=== PATIENT | female | born 1990 | race Caucasian/White ===

== ENCOUNTER 2023-11-09 13:50 | Outpatient (CLI) | payer OTHER, MEDICAID, SELFPAY ==
[2023-11-09 14:00] VITALS: BP 145/90; PULSE 101; TEMP 36.5; O2SAT 98
[2023-11-09 14:02] VITALS: PULSE 95; O2SAT 99
[2023-11-09 14:18] VITALS: BP 140/82; PULSE 81
[2023-11-09 14:31] LABS: ROM Internal Control Test YES-OK TO RESULT pt. (Internal QC); ROM Patient Test Negative (Negative)
[2023-11-09 15:12] VITALS: BP 131/85; PULSE 82
[2023-11-09 15:25] LABS: Group B Strep DNA By PCR Negative (Negative); Internal Control PASS; Probe Check PASS; Specimen Processing Control PASS
[2023-11-09 18:01] VITALS: BP 118/82; PULSE 82; TEMP 36.7
--- NOTE | 2023-11-10 11:09 | OB.TRI.NOTE ---
HPI - General HPI Narrative GRICEL PINZON, is a 33 F who presents Maternal Data Information Final XAVI: 11/02/23 Gestational age: 41 PFSH PFSH Home Medications vit no.95-ferrous fumarate 28 mg-folic acid 800 mcg tablet () 1 tab PO DAILY 11/09/23 [History Last Taken Unknown] Allergy/AdvReac Type Severity Reaction Status Date / Time latex Allergy Mild Swelling Verified 11/09/23 14:26 NST FHR Rate Baby A Baseline: 120 Variability:: Moderate Accelerations:: 15 x 15 Decelerations:: None NST Reactive:: Yes FHR Category:: Category I Uterine Activity:: irreg ctxs Assessment & Plan (1) 41 weeks gestation of : PLAN: 33-year-old multigravida female [place] presented for rule out spontaneous rupture membranes. That was negative. She was on her way home. Plans to deliver in [place]. heart tones were category 1, no evidence of rupture membranes or active labor. Patient was released home to follow-up at her home hospital as needed for signs or symptoms of labor or follow-up with her primary ob next week as scheduled
== END 2023-11-09 15:19 | disposition home or self-care (01) ==
LOC: WPOUT 13:59 → WP 14:00
PROVIDERS: Visit Provider Obstetrics & Gynecology
DX: Z03.79 Encounter for other suspected maternal and fetal conditions ruled out (principal); Z3A.41 41 weeks gestation of pregnancy
CPT/HCPCS: 59025; 59050; 84112; 87081; 87653; 99221; G0378